=== PATIENT | female | born 1960 | race Caucasian/White ===

== ENCOUNTER 2020-04-21 12:47 | Outpatient (REF) | payer OTHER, MEDICAID, SELFPAY ==
[2020-04-22 13:18] LABS: Lyme Abs Screen <0.90 index
== END 2020-04-21 12:48 | disposition home or self-care (01) ==
LOC: HO.LAB 12:47
PROVIDERS: Visit Provider Psychiatry & Neurology Neurology
DX: G43.909 Migraine, unspecified, not intractable, without status migrainosus (principal)
CPT/HCPCS: 86618

== ENCOUNTER 2022-11-26 10:52 | Outpatient (REF) | payer OTHER, SELFPAY | END 2022-11-26 10:53 | disposition home or self-care (01) | LOC: HO.HAP 10:52 | PROVIDERS: Visit Provider Physician Assistant | DX: Z46.1 Encounter for fitting and adjustment of hearing aid (principal); H90.3 Sensorineural hearing loss, bilateral | CPT/HCPCS: 92591 ==

== ENCOUNTER 2022-12-31 12:52 | Outpatient (REF) | payer OTHER, SELFPAY ==
--- NOTE | 2022-12-31 14:29 | MHC.AU.HA2 ---
Hearing Instrument Fitting- Adult- Binaural Date of Visit: 12/31/22 Hearing Instruments Dispensed: Right Ear: Make, Model, Color, Serial Number: Amena Audeo P70-R SN: [id number] Color: Sand Beige Copper Miner Blasting Repair Warranty: 02/23/2026 Copper Miner Blasting Loss and Damage Warranty: 02/23/2026 [facility] Service Plan: 01/01/2024 Battery Size: Rechargeable Adult Services Librarian/Slim Tube: 1M Earmold/Dome/CShell/SlimTip: Small open dome with retention tail Type of Wax Guard: CeruShield Left Ear: Make, Model, Color, Serial Number: Amena CROS P-R SN: [id number] Color: Sand Beige Copper Miner Blasting Repair Warranty: 02/23/2026 Copper Miner Blasting Loss and Damage Warranty: 02/23/2026 [facility] Service Plan: 01/01/2024 Battery Size: Rechargeable Adult Services Librarian/Slim Tube: 1C Earmold/Dome/CShell/SlimTip: Small open dome with retention tail Type of Wax Guard: CeruShield Accessories/Assistive Technology: Shuttle Fixer SN: [id number] Summary of Fitting: Ran feedback manager bakery and real ear measurements with good match to target in right ear and demonstrating CROS is overcoming the head shadow effect. Comfortable at real ear settings. Discussed care and use including rechargeability, manually turning on/off, volume control use, and change domes and wax guards. Explained how the CROS device works to picker machine operator sounds and send to the right ear. Discussed importance of daily, consistent use and acclimatization period with the hearing aids. Paired to cell phone. Did not pair to mena. Size 1 industrial fabric cutter slightly too long but Dahlia will try for now. Recommendations: A hearing instrument follow-up was scheduled. Diagnosis Code(s): Primary Diagnosis: H90.3 Bilateral Sensorineural Hearing Loss Signature: Provider: Bhumika Villa, [facility]
== END 2022-12-31 12:53 | disposition home or self-care (01) ==
LOC: HO.HAP 12:52
PROVIDERS: Visit Provider Otolaryngology
DX: Z46.1 Encounter for fitting and adjustment of hearing aid (principal); H90.3 Sensorineural hearing loss, bilateral
CPT/HCPCS: V5011; V5020; V5221; V5240

== ENCOUNTER 2023-01-19 13:51 | Outpatient (REF) | payer OTHER, SELFPAY ==
--- NOTE | 2023-01-19 14:29 | MHC.AU.HA3 ---
Hearing Instrument Follow-Up- Binaural Date of Visit: 01/19/23 Right Ear: Make, Model, Color, Serial Number: Amena Petereo P70-R SN: [id number] Color: Sand Beige Him Specialist Repair Warranty: 02/23/2026 Him Specialist Loss and Damage Warranty: 02/23/2026 [facility] Service Plan: 01/01/2024 Battery Size: Rechargeable String Laster/Slim Tube: 1M Earmold/Dome/CShell/SlimTip:Small open dome with retention tail Type of Wax Guard: CeruShield Dispensed By: [facility] Date of Fittin12/31/2022 Left Ear: Make, Model, Color, Serial Number: Amena CROS P-R SN: [id number] Color: Sand Beige Him Specialist Repair Warranty: 02/23/2026 Him Specialist Loss and Damage Warranty: 02/23/2026 [facility] Service Plan: 01/01/2024 Battery Size: Rechargeable String Laster/Slim Tube: 1C Earmold/Dome/CShell/SlimTip: Small open dome with retention tail Type of Wax Guard: CeruShield Dispensed By: [facility] Date of Fittin12/31/2022 Follow-Up Summary: Dahlia reported that overall she has been doing well with the hearing aids and notices a significant improvement in her hearing when wearing the hearing aids. However, data logging showed only 4 hours of use per day. Dahlia did not articulate a reason why she was not wearing them more often but did not want any programming changes at this time. She had difficulty inserting the hearing aids in office today and reported that her usually helps her put them on. Encouraged more consistent use (i.e., during all waking hours) and more practice for independent insertion. Size 1 area intelligence technician fits well over pinna now. Advised of need for periodic cleaning and maintenance. Recommendations: Hearing instrument maintenance in 6 months, or sooner if needed. Please contact our clinic with any questions or concerns. Diagnosis Code(s): Primary Diagnosis: H90.3 Bilateral Sensorineural Hearing Loss Signature: Provider: Bhumika Villa, [facility]
== END 2023-01-19 13:52 | disposition home or self-care (01) ==
LOC: HO.HAP 13:51
PROVIDERS: Visit Provider Physician Assistant
DX: Z13.89 Encounter for screening for other disorder (principal)